=== PATIENT | female | born 1945 | race Caucasian/White ===

== ENCOUNTER 2021-09-29 13:04 | Outpatient (CLI) | payer MEDICARE | END 2021-09-29 13:05 | disposition home or self-care (01) | LOC: MRI 13:04 | PROVIDERS: ATTEND Psychiatry & Neurology Neurology | DX: G40.909 Epilepsy, unspecified, not intractable, without status epilepticus (principal); H53.9 Unspecified visual disturbance | CPT/HCPCS: 70553; 95816; 95957 ==

== ENCOUNTER 2023-02-21 14:02 | Emergency (ER) | payer MEDICARE ==
[2023-02-21] MEDS ORDERED: Ketorolac Tromethamine 30 MG/ML VIAL ONE (15:13)
== END 2023-02-21 15:22 | disposition home or self-care (01) ==
LOC: ERS 14:02
DX: M25.552 Pain in left hip (principal); Z87.891 Personal history of nicotine dependence
CPT/HCPCS: 96372; J1885

== ENCOUNTER 2023-03-18 18:04 | Inpatient (IN) | payer MEDICARE ==
[2023-03-18 19:16] LABS: #Basophils 0.1 thou/uL (0.0-0.2); #Eosinphils 0.4 thou/uL (0.0-0.7); #Monocytes 0.8 thou/uL (0.11-0.59); #Neutrophils 5.7 thou/uL (1.40-6.50); %Basophils 0.7 % (0.0-1.0); %Eosinophils 4.5 % (0.0-10.0); %Lymphocytes 17.8 % (21.0-51.0); %Monocytes 9.4 % (0.0-10.0); %Neutrophils 67.2 % (42.0-75.0); Hematocrit 42.4 % (36.0-47.0); Mean Corpuscular HGB CONC 35.4 g/dL (32.0-36.0); Mean Corpuscular Volume 87.6 fl (78.0-98.0); Mean Platelet Volume 9.7 fL (7.4-10.4); Platelet Count 263 10x3/uL (130-400); RBC Distribution Width 11.9 % (11.5-14.5); Red Blood Cell (RBC) Count 4.84 mill/uL (4.20-5.40); White Blood Cell (WBC) Count 8.4 10x3/uL (4.8-10.8)
[2023-03-18] MEDS ORDERED: Morphine 4 MG/ML VIAL ONE (19:28)
[2023-03-18 19:35] LABS: PTT 27.5 sec (22.9-36.1); Prothrombin Time 13.5 sec (12.0-14.7)
[2023-03-18 19:40] LABS: ALT (SGPT) 18 U/L (8-55); AST (SGOT) 23 U/L (5-34); Albumin 5.1 g/dL (3.4-4.8); Alkaline Phosphatase 80 U/L (40-110); Anion Gap 19 mmol/L (10-20); BUN (Urea Nitrogen) 11 mg/dL (9.8-20.1); Bilirubin, Total 1.1 mg/dL (0.2-1.2); Calc. Creatinine Clearance 0 mL/min (70-130); Calcium 10.2 mg/dL (7.8-10.44); Carbon Dioxide 22 mmol/L (23-31); Chloride 101 mmol/L (98-107); Estimated GFR 76; Globulin 2.9 g/dL (2.4-3.5); Glucose 112 mg/dL (83-110); Sodium 138 mmol/L (136-145)
[2023-03-18] MEDS ORDERED: HYDROcodone/Acetaminophen 5/325 mg Tablet ONE (20:49)
[2023-03-18] MEDS ORDERED: Ondansetron PF 4 MG/2 ML Vial IVP PRN (22:08)
[2023-03-18] MEDS ORDERED: Morphine 2 MG/ML VIAL SLOW IVP PRN (22:08)
[2023-03-18] MEDS ORDERED: Ipratropium/Albuterol 3 ML NEB NEB PRN (22:08)
[2023-03-18] MEDS ORDERED: Cyclobenzaprine 10 MG TAB PO PRN (22:11)
[2023-03-18] MEDS ORDERED: traMADol HCl 50 MG TAB PO PRN (22:11)
[2023-03-18 23:18] LABS: Troponin I Less than 0.010 ng/mL (< 0.028)
[2023-03-19] MEDS: Acetaminophen 500 MG TAB PO SCH ×5 (01:19→22:24)
[2023-03-19] MEDS: traMADol HCl 50 MG TAB PO SCH ×5 (01:21→22:23)
[2023-03-19] MEDS: Sodium Chloride 0.9% 1,000 ML IV SCH ×2 (01:27→06:38)
[2023-03-19 03:48] VITALS: BMI 25.5
[2023-03-19 05:00] LABS: #Basophils 0.1 thou/uL (0.0-0.2); #Eosinphils 0.2 thou/uL (0.0-0.7); #Monocytes 0.8 thou/uL (0.11-0.59); #Neutrophils 5.5 thou/uL (1.40-6.50); %Basophils 0.6 % (0.0-1.0); %Eosinophils 3.1 % (0.0-10.0); %Lymphocytes 15.1 % (21.0-51.0); %Monocytes 9.9 % (0.0-10.0); %Neutrophils 70.9 % (42.0-75.0); Hematocrit 36.7 % (36.0-47.0); Hemoglobin 12.8 g/dL (12.0-16.0); Mean Corpuscular HGB CONC 34.9 g/dL (32.0-36.0); Mean Corpuscular Hemoglobin 30.9 pg (27.0-31.0); Mean Corpuscular Volume 88.6 fl (78.0-98.0); Mean Platelet Volume 9.2 fL (7.4-10.4); Platelet Count 207 10x3/uL (130-400); RBC Distribution Width 11.9 % (11.5-14.5); Red Blood Cell (RBC) Count 4.14 mill/uL (4.20-5.40); White Blood Cell (WBC) Count 7.7 10x3/uL (4.8-10.8)
[2023-03-19 05:26] LABS: Anion Gap 16 mmol/L (10-20); BUN (Urea Nitrogen) 11 mg/dL (9.8-20.1); Calc. Creatinine Clearance 78 mL/min (70-130); Calcium 8.7 mg/dL (7.8-10.44); Carbon Dioxide 23 mmol/L (23-31); Chloride 102 mmol/L (98-107); Estimated GFR 91; Glucose 99 mg/dL (83-110); Potassium 3.8 mmol/L (3.5-5.1); Sodium 137 mmol/L (136-145)
[2023-03-19 05:38] LABS: INR-International Normal Ratio 1.1; PTT 27.3 sec (22.9-36.1); Prothrombin Time 14.8 sec (12.0-14.7)
[2023-03-19 05:54] LABS: Bacteria/HPF None Seen HPF (None Seen); Bilirubin Negative (Negative); Blood, Urine Negative (Negative); Clarity Clear (Clear); Glucose, Urine (Dipstick) Normal (Negative); Ketone, Urine 60 mg/dL (Negative); Leukocyte Negative Leu/uL (Negative); Nitrite Negative (Negative); Protein, Urine (Dipstick) Negative (Neg-Trace); RBC/HPF None Seen HPF (0-3); Specific Gravity, Urine 1.012 (1.002-1.036); Squamous Epithelial 0-3 HPF (0-3); Urobilinogen Normal mg/dL (Less than 2); WBC/HPF 0-3 HPF (0-3)
[2023-03-19] MEDS ORDERED: CEFAZOLIN 2 GM in Sodium Chloride 0.9% 100 ML IVPB SCH (07:30)
[2023-03-19] MEDS: Propranolol HCl LA 80 MG CAP PO SCH ×2 (08:57→21:26)
[2023-03-19] MEDS: busPIRone HCl 5 MG TAB PO SCH ×2 (08:57→21:25)
[2023-03-19] MEDS: Senokot S 8.6-50 MG TAB PO SCH ×2 (08:57→21:24)
[2023-03-19] MEDS: Famotidine/PF 20 mg/2ml Vial SLOW IVP SCH ×2 (08:57→21:24)
[2023-03-19] MEDS: Polyethylene Glycol 3350 17 GM Packet PO SCH (08:57)
[2023-03-19] MEDS ORDERED: fentaNYL PF 100 MCG/2 ML SYRINGE ONE (12:14)
[2023-03-19] MEDS ORDERED: Sodium Chloride 0.9% 100 ML ONE (12:51)
[2023-03-19] MEDS ORDERED: CEFAZOLIN 2 GM VIAL ONE (12:51)
[2023-03-19] MEDS ORDERED: Dexamethasone 20 MG/5 ML VIAL ONE (13:05)
[2023-03-19] MEDS ORDERED: Ondansetron PF 4 MG/2 ML Vial ONE (13:05)
[2023-03-19] MEDS ORDERED: Rocuronium Bromide 10 MG/ML (10ML VIAL) ONE (13:05)
[2023-03-19] MEDS ORDERED: Lidocaine 1% PF 5 ML VIAL ONE (13:05)
[2023-03-19] MEDS ORDERED: PROPOFOL 200 MG/20 ML VIAL ONE (13:05)
[2023-03-19] MEDS ORDERED: Glycopyrrolate 0.2 MG/ML 5 ML SYRINGE ONE (13:05)
[2023-03-19] MEDS ORDERED: NEOSTIGMINE 3 MG/3 ML SYR 3 MG/3 ML SYRINGE ONE (13:05)
[2023-03-19] MEDS ORDERED: fentaNYL 50 mcg/mL 1 mL Vial ONE ×2 (14:19→15:15)
[2023-03-19] MEDS ORDERED: Morphine Sulfate 2 MG/ML SYRINGE SLOW IVP PRN (14:48)
[2023-03-19] MEDS ORDERED: PACU-Morphine 4MG/ML VIAL SLOW IVP PRN (14:48)
[2023-03-19] MEDS ORDERED: HYDROmorphone 2 MG/ML VIAL SLOW IVP PRN (14:48)
[2023-03-19] MEDS ORDERED: Labetalol HCl 100 MG/20 ML VIAL ONE (15:09)
[2023-03-19] MEDS: CEFAZOLIN 2 GM in Sodium Chloride 0.9% 100 ML IVPB SCH (21:24)
[2023-03-20 04:45] LABS: #Neutrophils 8.1 thou/uL (1.40-6.50); %Basophils 0.3 % (0.0-1.0); %Lymphocytes 7.6 % (21.0-51.0); %Monocytes 10.2 % (0.0-10.0); %Neutrophils 81.5 % (42.0-75.0); Hematocrit 33.5 % (36.0-47.0); Hemoglobin 11.6 g/dL (12.0-16.0); Mean Corpuscular HGB CONC 34.6 g/dL (32.0-36.0); Mean Corpuscular Hemoglobin 30.9 pg (27.0-31.0); Mean Corpuscular Volume 89.1 fl (78.0-98.0); Mean Platelet Volume 9.4 fL (7.4-10.4); Platelet Count 195 10x3/uL (130-400); RBC Distribution Width 11.9 % (11.5-14.5); Red Blood Cell (RBC) Count 3.76 mill/uL (4.20-5.40); White Blood Cell (WBC) Count 9.9 10x3/uL (4.8-10.8)
[2023-03-20] MEDS: traMADol HCl 50 MG TAB PO SCH ×4 (05:35→23:08)
[2023-03-20] MEDS: CEFAZOLIN 2 GM in Sodium Chloride 0.9% 100 ML IVPB SCH ×2 (05:35→15:14)
[2023-03-20] MEDS: Acetaminophen 500 MG TAB PO SCH ×4 (05:36→23:08)
[2023-03-20] MEDS: busPIRone HCl 5 MG TAB PO SCH ×2 (09:58→20:15)
[2023-03-20] MEDS: Propranolol HCl LA 80 MG CAP PO SCH ×2 (09:58→20:15)
[2023-03-20] MEDS: Polyethylene Glycol 3350 17 GM Packet PO SCH (09:59)
[2023-03-20] MEDS: Famotidine/PF 20 mg/2ml Vial SLOW IVP SCH (09:59)
[2023-03-20] MEDS: Senokot S 8.6-50 MG TAB PO SCH ×2 (09:59→20:15)
[2023-03-20] MEDS: Aspirin 81 mg Enteric Coated Tablet PO SCH (20:15)
[2023-03-21 04:21] LABS: #Eosinphils 0.2 thou/uL (0.0-0.7); #Monocytes 0.8 thou/uL (0.11-0.59); #Neutrophils 6.1 thou/uL (1.40-6.50); %Basophils 0.5 % (0.0-1.0); %Lymphocytes 11.5 % (21.0-51.0); %Monocytes 9.9 % (0.0-10.0); %Neutrophils 75.5 % (42.0-75.0); Hematocrit 30.3 % (36.0-47.0); Hemoglobin 10.5 g/dL (12.0-16.0); Mean Corpuscular HGB CONC 34.7 g/dL (32.0-36.0); Mean Corpuscular Hemoglobin 30.9 pg (27.0-31.0); Mean Corpuscular Volume 89.1 fl (78.0-98.0); Mean Platelet Volume 9.5 fL (7.4-10.4); Platelet Count 176 10x3/uL (130-400); White Blood Cell (WBC) Count 8.1 10x3/uL (4.8-10.8)
[2023-03-21 04:41] VITALS: TEMP 98.5
[2023-03-21] MEDS: Acetaminophen 500 MG TAB PO SCH ×2 (05:20→10:59)
[2023-03-21] MEDS: traMADol HCl 50 MG TAB PO SCH ×2 (05:21→10:57)
[2023-03-21] MEDS: Senokot S 8.6-50 MG TAB PO SCH (08:30)
[2023-03-21] MEDS: Polyethylene Glycol 3350 17 GM Packet PO SCH (08:30)
[2023-03-21] MEDS: Aspirin 81 mg Enteric Coated Tablet PO SCH (08:30)
[2023-03-21] MEDS: busPIRone HCl 5 MG TAB PO SCH (08:30)
[2023-03-21] MEDS: Propranolol HCl LA 80 MG CAP PO SCH (08:30)
[2023-03-21 13:00] VITALS: BP 120/68
== END 2023-03-21 14:27 | DRG 522 ==
LOC: ERS 18:04 → 2NO 23:44
PROVIDERS: ADMIT Specialist; ATTEND Specialist
PROC: 0SRS0JZ Replacement of Left Hip Joint, Femoral Surface with Synthetic Substitute, Open Approach (ICD-10-PCS; principal; 2023-03-19)
DX: S72.012A Unspecified intracapsular fracture of left femur, initial encounter for closed fracture (principal); I48.91 Unspecified atrial fibrillation; W19.XXXA Unspecified fall, initial encounter; Z88.8 Allergy status to other drugs, medicaments and biological substances; Y92.9 Unspecified place or not applicable
CPT/HCPCS: 36415; 72170; 72192; 80048; 80053; 81001; 83880; 84484; 85025; 85610; 85730; 87086; 93005; C1776; J1100; J2270; J2405; J2704; J3010; J3490; J7050; S0028

== ENCOUNTER 2024-03-06 15:52 | Inpatient (IN) | payer MEDICARE ==
[2024-03-06 17:18] LABS: #Basophils 0.08 10x3/uL (0.0-0.2); %Eosinophils 2.9 % (0.0-10.0); %Lymphocytes 13.5 % (21.0-51.0); %Monocytes 8.3 % (0.0-10.0); Hematocrit 42.2 % (36.0-47.0); Hemoglobin 14.7 g/dL (12.0-16.0); Mean Corpuscular HGB CONC 34.8 g/dL (32.0-36.0); Platelet Count 219 10x3/uL (130-400); RBC Distribution Width 11.9 % (11.5-14.5); Red Blood Cell (RBC) Count 4.74 mill/uL (4.20-5.40)
[2024-03-06 17:27] LABS: Bacteria/HPF None Seen HPF (None Seen); Bilirubin Negative (Negative); Blood, Urine Negative (Negative); CAUTI Indications for Culture Acute Hematuria; Clarity Clear (Clear); Glucose, Urine (Dipstick) Normal (Negative); Ketone, Urine Negative (Negative); Leukocyte Negative Leu/uL (Negative); Nitrite Negative (Negative); Protein, Urine (Dipstick) Negative (Neg-Trace); RBC/HPF 0-3 HPF (0-3); Specific Gravity, Urine 1.002 (1.002-1.036); Squamous Epithelial 0-3 HPF (0-3); Urobilinogen Normal mg/dL (Less than 2); WBC/HPF 0-3 HPF (0-3); pH, Urine 6.5 (5.0-9.0)
[2024-03-06 17:31] LABS: Urine Culture Reflex No No
[2024-03-06 17:33] LABS: ALT (SGPT) 44 U/L (8-55); AST (SGOT) 36 U/L (5-34); Albumin 4.8 g/dL (3.4-4.8); Alkaline Phosphatase 50 U/L (40-110); Anion Gap 15 mmol/L (10-20); BUN (Urea Nitrogen) 11 mg/dL (9.8-20.1); Bilirubin, Total 0.9 mg/dL (0.2-1.2); Calc. Creatinine Clearance 0 mL/min (70-130); Carbon Dioxide 26 mmol/L (23-31); Chloride 101 mmol/L (98-107); Estimated GFR 65; Glucose 111 mg/dL (83-110); Potassium 3.4 mmol/L (3.5-5.1); Protein, Total 7.8 g/dL (5.8-8.1); Sodium 139 mmol/L (136-145)
[2024-03-06] MEDS ORDERED: dilTIAZem 25 MG/5 ML VIAL ONE (17:37)
[2024-03-06 17:39] LABS: Troponin I Less than 0.010 ng/mL (< 0.028)
[2024-03-06 21:28] VITALS: BMI 27.6
[2024-03-06] MEDS: Diltiazem HCl/D5W 125 MG in Premix 1 BAG IVPB SCH (22:45)
[2024-03-06] MEDS: busPIRone HCl 5 MG TAB PO SCH (22:45)
[2024-03-06] MEDS: Enoxaparin 80 MG (0.8 mL) SYRINGE SC SCH (22:45)
[2024-03-07] MEDS: Acetaminophen 325 MG TAB PO SCH (00:36)
[2024-03-07 05:19] LABS: #Basophils 0.07 10x3/uL (0.0-0.2); %Basophils 1.2 % (0.0-1.0); %Eosinophils 7.8 % (0.0-10.0); %Monocytes 10.9 % (0.0-10.0); %Neutrophils 56.9 % (42.0-75.0); Hematocrit 36.2 % (36.0-47.0); Hemoglobin 12.5 g/dL (12.0-16.0); Mean Corpuscular HGB CONC 34.5 g/dL (32.0-36.0); Mean Corpuscular Hemoglobin 31.3 pg (27.0-31.0); Mean Corpuscular Volume 90.7 fL (78.0-98.0); Platelet Count 193 10x3/uL (130-400); RBC Distribution Width 12.1 % (11.5-14.5); Red Blood Cell (RBC) Count 3.99 mill/uL (4.20-5.40)
[2024-03-07 05:33] LABS: Anion Gap 14 mmol/L (10-20); BUN (Urea Nitrogen) 11 mg/dL (9.8-20.1); Calc. Creatinine Clearance 72 mL/min (70-130); Calcium 8.8 mg/dL (7.8-10.44); Carbon Dioxide 23 mmol/L (23-31); Chloride 107 mmol/L (98-107); Estimated GFR 78; Glucose 99 mg/dL (83-110); Potassium 3.2 mmol/L (3.5-5.1); Sodium 141 mmol/L (136-145)
[2024-03-07] MEDS ORDERED: Diltiazem HCl/D5W 125 MG in Premix 1 BAG IVPB SCH (06:30)
[2024-03-07 07:43] LABS: Hemoglobin A1c 5.5 % (4.0-6.0)
[2024-03-07] MEDS: Potassium Chloride 20 MEQ TAB PO SCH (08:14)
[2024-03-07] MEDS: Hydrochlorothiazide 25 MG TAB PO SCH (08:14)
[2024-03-07] MEDS: Lisinopril 20 MG TAB PO SCH (08:14)
[2024-03-07] MEDS: Enoxaparin 80 MG (0.8 mL) SYRINGE SC SCH (08:15)
[2024-03-07] MEDS: busPIRone HCl 5 MG TAB PO SCH (08:18)
[2024-03-07 08:26] LABS: Cardiac Risk 4.8 (Less than 4.5)
[2024-03-07 09:17] LABS: Magnesium 2.1 mg/dL (1.6-2.6)
[2024-03-07] MEDS: Metoprolol Tartrate 25 MG TAB PO SCH ×2 (16:25→22:10)
[2024-03-07] MEDS: Apixaban 5 MG TAB PO SCH (18:00)
[2024-03-08] MEDS: dilTIAZem 125 MG in Sodium Chloride 0.9% 100 ML IVPB SCH (00:55)
[2024-03-08 04:37] LABS: #Basophils 0.07 10x3/uL (0.0-0.2); %Basophils 1.1 % (0.0-1.0); %Eosinophils 8.6 % (0.0-10.0); %Lymphocytes 19.4 % (21.0-51.0); %Monocytes 11.1 % (0.0-10.0); %Neutrophils 59.5 % (42.0-75.0); Hematocrit 38.1 % (36.0-47.0); Hemoglobin 13.2 g/dL (12.0-16.0); Mean Corpuscular HGB CONC 34.6 g/dL (32.0-36.0); Mean Corpuscular Hemoglobin 31.2 pg (27.0-31.0); Mean Corpuscular Volume 90.1 fL (78.0-98.0); Mean Platelet Volume 8.9 fL (7.4-10.4); Platelet Count 189 10x3/uL (130-400); RBC Distribution Width 12.1 % (11.5-14.5); Red Blood Cell (RBC) Count 4.23 mill/uL (4.20-5.40)
[2024-03-08 04:54] LABS: Anion Gap 13 mmol/L (10-20); BUN (Urea Nitrogen) 11 mg/dL (9.8-20.1); Calc. Creatinine Clearance 65 mL/min (70-130); Carbon Dioxide 23 mmol/L (23-31); Chloride 106 mmol/L (98-107); Estimated GFR 70; Glucose 103 mg/dL (83-110); Potassium 3.5 mmol/L (3.5-5.1); Sodium 138 mmol/L (136-145)
[2024-03-08] MEDS: Potassium Chloride 20 MEQ TAB PO SCH (07:37)
[2024-03-08] MEDS ORDERED: dilTIAZem 125 MG in Sodium Chloride 0.9% 100 ML IVPB SCH ×2 (07:45→13:45)
[2024-03-08] MEDS: Apixaban 5 MG TAB PO SCH (09:27)
[2024-03-08] MEDS ORDERED: Diltiazem HCl/D5W 125 MG in Premix 1 BAG IVPB SCH (15:00)
[2024-03-08 18:09] LABS: Phosphorus 3.3 mg/dL (2.3-4.7)
[2024-03-08] MEDS: dilTIAZem CD 180 MG CAP PO SCH (18:17)
[2024-03-09 05:09] LABS: #Basophils 0.07 10x3/uL (0.0-0.2); %Basophils 0.9 % (0.0-1.0); %Eosinophils 7.1 % (0.0-10.0); %Lymphocytes 17.9 % (21.0-51.0); %Monocytes 10.5 % (0.0-10.0); %Neutrophils 63.3 % (42.0-75.0); Hematocrit 37.5 % (36.0-47.0); Hemoglobin 13.3 g/dL (12.0-16.0); Mean Corpuscular HGB CONC 35.5 g/dL (32.0-36.0); Mean Corpuscular Hemoglobin 31.2 pg (27.0-31.0); Mean Platelet Volume 9.2 fL (7.4-10.4); Platelet Count 191 10x3/uL (130-400); Red Blood Cell (RBC) Count 4.26 mill/uL (4.20-5.40)
[2024-03-09 05:27] LABS: Anion Gap 13 mmol/L (10-20); BUN (Urea Nitrogen) 13 mg/dL (9.8-20.1); Calc. Creatinine Clearance 69 mL/min (70-130); Calcium 8.8 mg/dL (7.8-10.44); Carbon Dioxide 22 mmol/L (23-31); Chloride 106 mmol/L (98-107); Estimated GFR 75; Glucose 101 mg/dL (83-110); Potassium 3.6 mmol/L (3.5-5.1); Sodium 137 mmol/L (136-145)
[2024-03-09] MEDS: Potassium Chloride 20 MEQ TAB PO SCH (06:27)
[2024-03-09] MEDS: dilTIAZem CD 180 MG CAP PO SCH (08:53)
[2024-03-09] MEDS: Metoprolol Tartrate 25 MG TAB PO SCH (20:24)
[2024-03-10 04:55] LABS: #Basophils 0.06 10x3/uL (0.0-0.2); %Basophils 0.9 % (0.0-1.0); %Eosinophils 9.5 % (0.0-10.0); %Monocytes 11.9 % (0.0-10.0); %Neutrophils 52.2 % (42.0-75.0); Hemoglobin 13.6 g/dL (12.0-16.0); Mean Corpuscular Hemoglobin 31.1 pg (27.0-31.0); Mean Corpuscular Volume 91.3 fL (78.0-98.0); Platelet Count 194 10x3/uL (130-400); Red Blood Cell (RBC) Count 4.38 mill/uL (4.20-5.40)
[2024-03-10 05:08] LABS: Anion Gap 12 mmol/L (10-20); BUN (Urea Nitrogen) 14 mg/dL (9.8-20.1); Calc. Creatinine Clearance 64 mL/min (70-130); Calcium 9.4 mg/dL (7.8-10.44); Carbon Dioxide 25 mmol/L (23-31); Chloride 104 mmol/L (98-107); Estimated GFR 68; Glucose 97 mg/dL (83-110); Sodium 137 mmol/L (136-145)
[2024-03-10] MEDS ORDERED: Lisinopril 10 MG TAB PO PRN (08:15)
[2024-03-10] MEDS ORDERED: Acetaminophen 325 MG TAB PO PRN (08:19)
[2024-03-10 11:02] VITALS: BP 113/70; TEMP 97.5
== END 2024-03-10 13:04 | disposition home or self-care (01) | DRG 310 ==
LOC: ERS 15:52 → 2NO 18:39 → OBSVTOIN 03-07 14:35
PROVIDERS: ADMIT Family Medicine; ATTEND Family Medicine
DX: I48.91 Unspecified atrial fibrillation (principal); I10 Essential (primary) hypertension; F41.9 Anxiety disorder, unspecified; Z96.642 Presence of left artificial hip joint; M54.9 Dorsalgia, unspecified; M19.90 Unspecified osteoarthritis, unspecified site; E87.6 Hypokalemia; I49.3 Ventricular premature depolarization; Z88.8 Allergy status to other drugs, medicaments and biological substances; Z79.899 Other long term (current) drug therapy
CPT/HCPCS: 36415; 71045; 80048; 80053; 80061; 81001; 83036; 83735; 83880; 84100; 84443; 84484; 85025; 85379; 93005; 93306; 96361; 96372; 96374; 96376; G0378; J1650

== ENCOUNTER 2024-04-29 14:15 | Outpatient (CLI) | payer MEDICARE ==
[2024-04-29 15:45] LABS: #Basophils 0.08 10x3/uL (0.0-0.2); %Eosinophils 3.8 % (0.0-10.0); %Lymphocytes 15.4 % (21.0-51.0); %Monocytes 8.2 % (0.0-10.0); %Neutrophils 71.1 % (42.0-75.0); Hematocrit 41.2 % (36.0-47.0); Hemoglobin 14.4 g/dL (12.0-16.0); Mean Corpuscular Volume 88.6 fL (78.0-98.0); Mean Platelet Volume 9.1 fL (7.4-10.4); Platelet Count 198 10x3/uL (130-400); RBC Distribution Width 12.3 % (11.5-14.5); Red Blood Cell (RBC) Count 4.65 mill/uL (4.20-5.40)
[2024-04-29 16:16] LABS: Anion Gap 14 mmol/L (10-20); BUN (Urea Nitrogen) 10 mg/dL (9.8-20.1); Calc. Creatinine Clearance 0 mL/min (70-130); Calcium 9.6 mg/dL (7.8-10.44); Carbon Dioxide 22 mmol/L (23-31); Chloride 107 mmol/L (98-107); Estimated GFR 69; Glucose 101 mg/dL (83-110); Potassium 3.8 mmol/L (3.5-5.1); Sodium 139 mmol/L (136-145)
== END 2024-04-29 14:16 | disposition home or self-care (01) ==
LOC: LABBT 14:15
PROVIDERS: ATTEND Internal Medicine Cardiovascular Disease
DX: Z01.818 Encounter for other preprocedural examination (principal); I48.20 Chronic atrial fibrillation, unspecified
CPT/HCPCS: 80048; 85025; 93005; 93010

== ENCOUNTER 2024-05-02 10:15 | Day surgery (SDC) | payer MEDICARE ==
[2024-04-29 14:46] VITALS: BMI 25.0
[2024-05-02] MEDS ORDERED: PROPOFOL 20 ML ONE (12:21)
== END 2024-05-02 14:10 | disposition home or self-care (01) ==
LOC: SDC 10:15
PROVIDERS: ATTEND Internal Medicine Cardiovascular Disease
PROC: 5A2204Z Restoration of Cardiac Rhythm, Single (ICD-10-PCS; principal; 2024-05-02)
PROC: B246ZZ4 Ultrasonography of Right and Left Heart, Transesophageal (ICD-10-PCS; 2024-05-02)
DX: I48.91 Unspecified atrial fibrillation (principal); I10 Essential (primary) hypertension; F41.9 Anxiety disorder, unspecified; M54.9 Dorsalgia, unspecified; Z96.642 Presence of left artificial hip joint; Z79.01 Long term (current) use of anticoagulants
CPT/HCPCS: 92960; 93312; J2704